=== PATIENT | female | born 1960 | race Caucasian/White ===

== ENCOUNTER → 2020-07-12 13:53 | Outpatient (BNVA) | payer BC, SELFPAY | PROVIDERS: Family Provider Internal Medicine; Referring Provider Internal Medicine; Visit Provider Specialist | DX: M54.2 Cervicalgia (principal); G56.02 Carpal tunnel syndrome, left upper limb; G56.22 Lesion of ulnar nerve, left upper limb | CPT/HCPCS: 95910 ==

== ENCOUNTER → 2020-10-16 18:32 | Outpatient (BNVA) | payer BC, SELFPAY | PROVIDERS: Family Provider Internal Medicine; Visit Provider Nurse Practitioner Family | DX: Z20.828 Contact with and (suspected) exposure to other viral communicable diseases (principal) | CPT/HCPCS: 87635 ==

== ENCOUNTER 2021-03-10 09:40 | Outpatient (CLI) | payer BC, SELFPAY ==
[2021-03-10 10:22] VITALS: BMI 28.1
--- NOTE | 2021-03-10 10:28 | ECG_ITS ---
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 Baseline heart rate was 83 beats per minute. Baseline blood pressure was 170/100 millimeters of mercury. Target heart rate was 162 beats per minute. Maximum heart rate achieved was 151, which was 93 % of the target heart rate. Maximum blood pressure was 211/106 millimeters of mercury. Total exercise time was 9 minutes 31 sec. Maximum METs achieved was 13.5, maximum VO2 was 47.3. The reason for ending the test was maximum effort achieved. The patient complained of shortness of during the stress test, which then resolved at the end of the test. ELECTROCARDIOGRAM: BASELINE: Showed sinus rhythm, normal axis, no significant ST-T changes at the baseline noted. EXERCISE: At the peak exercise level, no significant ST-T changes suggestive of ischemia noted. RECOVERY: During the recovery period, heart rate dropped appropriately. No significant ST-T changes in the recovery suggestive of ischemia noted. CONCLUSION: 1. Exercise capacity good. 2. Heart rate response was appropriate. 3. Blood pressure response was hypertensive. 4. Symptoms not suggestive of ischemia. 5. Electrocardiogram portion of the stress test was not suggestive of ischemia. Electronically Signed On 03-29-2021 20:51:15 CDT by SIA PRIEST [id number]
--- NOTE | 2021-03-10 10:28 | NMCV_ITS ---
NM nishant perf SPECT r/s* [id number] Prisca Ryan Age: 60 Gender: F : 1960 Exam Date: 03/10/2021 10:28 Ordering Phys: Elisabet Vasquez MD Technologist: SHAWN Acosta Exam Location: [facility] Indications: CHEST PAIN STRESS TEST [facility] IMAGE PROTOCOL Rest/Stress 1 Exercise Day Radiopharmaceutical Dose (mCi) Administration Site Administered by Rest: Tc-99m 10.7 IV SHAWN Acosta Sestamibi Stress:Tc-99m 32.8 IV SHAWN Thorne Sestamibi Rest: 10-Mar-2021 60 Discovery 630 Stress: 10-Mar-2021 15 Discovery 630 Radiopharmaceutical was injected at 86 % maximum heart rate. Images obtained in supine and prone position. SPECT RESULTS Technical Quality: Excellent Raw Data Analysis: Normal Image Corrections: No attenuation or motion correction applied Summed Stress Score: 0 Summed Rest Score: 1 Summed Difference Score: 0 PERFUSION FINDINGS FUNCTIONAL RESULTS (calculated via Gated SPECT) Stress Image LV EF (%): 88 Stress EDV (mL):64 TID: 0.53 Stress ESV (mL):8 Rest Image LV EF (%): 88 FUNCTIONAL FINDINGS: There is normal left ventricular systolic function. IMPRESSIONS Myocardial perfusion imaging is normal and low probability for obstructive coronary artery disease, EKG segment will be documented separately. Brianne Rodriguez MD (Electronically Signed) Final Date: 11 March 2021 20:38 S
[2021-03-10 12:10] VITALS: BP 175/95; PULSE 95
== END 2021-03-10 09:41 | disposition home or self-care (01) ==
LOC: CDL 09:42
PROVIDERS: PCP Family Medicine; Visit Provider Family Medicine
DX: R07.9 Chest pain, unspecified (principal)
CPT/HCPCS: 78452; 93017; A9500

== ENCOUNTER 2021-11-02 07:28 | Outpatient (RCR) | payer BC, SELFPAY | END 2021-11-18 23:59 | disposition home or self-care (01) | LOC: SPT 07:28 | PROVIDERS: PCP Family Medicine; Visit Provider Orthopaedic Surgery | DX: S46.092D Other injury of muscle(s) and tendon(s) of the rotator cuff of left shoulder, subsequent encounter (principal); X58.XXXD Exposure to other specified factors, subsequent encounter | CPT/HCPCS: 97110; 97140; 97161 ==

== ENCOUNTER → 2021-11-14 12:41 | Outpatient (BNVA) | payer BC, SELFPAY | PROVIDERS: PCP Family Medicine; Visit Provider Surgery | DX: Z01.812 Encounter for preprocedural laboratory examination (principal); Z20.822 Contact with and (suspected) exposure to COVID-19 | CPT/HCPCS: 87635 ==

== ENCOUNTER 2021-11-17 06:26 | Day surgery (SDC) | payer BC, SELFPAY ==
[2021-11-14 12:24] VITALS: BMI 28.0
[2021-11-17 06:42] VITALS: BP 143/102; PULSE 67; RESP 18; TEMP 37; O2SAT 97
[2021-11-17] MEDS: sodium chloride 0.9% 1,000 ML 30 ML IV (06:51)
--- NOTE | 2021-11-17 06:53 | ANES.PREANE2 ---
Pre-Anesthetic Assessment Pre-Anesthetic Assessment: Height/Weight: Height 1.7 m Weight 81.193 kg Temp Pulse Resp BP Pulse Ox 98.6 F 67 18 143/102 97 11/17/21 06:42 11/17/21 06:42 11/17/21 06:42 11/17/21 06:42 11/17/21 06:42 Proposed Procedure: Operation Date: 11/17/21 07:30 Proposed Procedures p Colonoscopy 58217 z12.11(Not Applicable) - Dequan Caal MD Was Beta Cheryl taken within 24 hours: N/A Was Clonidine taken within 24 hours: N/A Social: Social History: No alcohol and No tobacco Exam: Pre-Anes Outpt Exam: alert, oriented x 3 and clear to auscultation bilaterally Additional Exam Findings (including area of procedure): irregular Airway: Submandibular: WNL Cervical ROM: WNL MP: 2 Dentition: Partials CV/HEM: CV/HEM: Afib and HTN GI: GI: GERD Neuropsych: Neuropsych: Neuropathy Anesthetic Plan: ASA status: 3 Anesthesia: MAC Risk of > 500 ml blood loss (7ml/kg in children): No PFSH Anesthesia PFSH: Family History (Updated 10/16/20 @ 17:39 by Vane Logan LPN) Father Hypertension Denies family history of Diabetes Dementia Social History (Updated 10/16/20 @ 17:38 by Vane Logan LPN) Smoking and tobacco status: never smoked Alcohol intake: never Data Anesthesia Cardiac Studies: Sestamibi Stress Test (Cardiology) 03/10/21
--- NOTE | 2021-11-17 07:21 | P.HP_ITS ---
Same Day Surgery H&P Indication for Procedure/HPI DATE OF PROCEDURE: November 17, 2021 CHIEF COMPLAINT/INDICATIONFOR SURGICAL PROCEDURE: screening colonoscopy PREOP DIAGNOSIS: screening colonoscopy PLANNED PROCEDRUE: Operation Date: 11/17/21 07:30 Proposed Procedures p Colonoscopy 45915 z12.11(Not Applicable) - Dequan Caal MD Medications/Allergies* Home Medications Medication Instructions Recorded Confirmed Type atorvastatin 80 mg tablet 80 mg PO DAILY 07/12/20 11/14/21 History diltiazem HCl 240 mg 240 mg PO DAILY 07/12/20 11/14/21 History capsule,extended release 24 hr enalapril 10 1 tab PO DAILY 07/12/20 11/14/21 History mg-hydrochlorothiazide 25 mg tablet meloxicam 15 mg tablet 15 mg PO DAILY 07/12/20 11/14/21 History omeprazole magnesium 20 mg 20 mg PO DAILY 07/12/20 11/14/21 History tablet,delayed release tramadol 50 mg tablet 50 mg PO Q6H PRN 07/12/20 11/14/21 History loratadine 10 mg tablet 10 mg PO DAILY 10/16/20 11/14/21 History empagliflozin 25 mg tablet 25 mg PO DAILY 08/26/21 11/14/21 History Allergies/Adverse Reactions Allergy/AdvReac Type Severity Reaction Status Date / Time No Known Allergies Allergy Verified 11/17/21 06:42 Current Medications: Generic Name Dose Route Start Last Admin Trade Name Freq PRN Reason Stop Dose Admin Sodium Chloride 1,000 mls @ 30 mls/hr 11/17/21 06:30 11/17/21 06:51 Sodium Chloride 0.9% IV 11/18/21 06:29 30 mls/hr .Q24H LENNIE Administration Pertinent History/Comorbid Conditions* Family History (Updated 10/16/20 @ 17:39 by Vane Logan LPN) Hypertension Father Denies family history of Diabetes Dementia Social History Smoking and tobacco status: never smoked Alcohol intake: never Pertinent Exam Findings alert, oriented x 3 and regular rate & rhythm Recommendations Surgery/Procedure today Coding Level of Care Code Acute Integrated Marketing Manager for Domenico Olguin
--- NOTE | 2021-11-17 08:11 | ANE.PACU2 ---
Inpatient post-anesthesia follow up: Airway intact: Yes Vital signs: Temperature 98.6 F Pulse Rate 67 Respiratory Rate 18 Blood Pressure 143/102 Pulse Oximetry 97 Oxygen Delivery Me thod Room Air Oxygen Flow Rate Fraction of Inspir ed Oxygen Hydration adequate: Yes Nausea and vomiting: No Pain level: 1 Mental status: Baseline
[2021-11-17 08:14] VITALS: BP 119/76; PULSE 73; RESP 16; TEMP 36.1; O2SAT 97
[2021-11-17 08:23] VITALS: BP 131/96; PULSE 61; RESP 18; O2SAT 96
== END 2021-11-17 08:50 | disposition home or self-care (01) ==
PROVIDERS: PCP Family Medicine; Visit Provider Surgery
PROC: 0DJD8ZZ Inspection of Lower Intestinal Tract, Via Natural or Artificial Opening Endoscopic (ICD-10-PCS; CPT 45378; principal; 2021-11-17 07:30)
DX: Z12.11 Encounter for screening for malignant neoplasm of colon (principal); K57.30 Diverticulosis of large intestine without perforation or abscess without bleeding; I10 Essential (primary) hypertension; K21.9 Gastro-esophageal reflux disease without esophagitis
CPT/HCPCS: 45378; 96360; J2704; J7030

== ENCOUNTER 2021-11-19 06:00 | Outpatient (RCR) | payer BC, SELFPAY | END 2021-12-19 23:59 | disposition home or self-care (01) | LOC: SPT 06:00 | PROVIDERS: PCP Family Medicine; Visit Provider Orthopaedic Surgery | DX: S46.092D Other injury of muscle(s) and tendon(s) of the rotator cuff of left shoulder, subsequent encounter (principal); X58.XXXD Exposure to other specified factors, subsequent encounter | CPT/HCPCS: 97110; 97140 ==

== ENCOUNTER 2021-12-20 06:00 | Outpatient (RCR) | payer BC, SELFPAY | END 2022-01-16 23:59 | disposition home or self-care (01) | LOC: SPT 06:00 | PROVIDERS: PCP Family Medicine; Visit Provider Orthopaedic Surgery | DX: Z47.89 Encounter for other orthopedic aftercare (principal) | CPT/HCPCS: 97110 ==

== ENCOUNTER 2022-02-03 08:28 | Outpatient (CLI) | payer OTHER, SELFPAY ==
--- NOTE | 2022-02-03 08:52 | MM_ITS ---
WS: [id number] BILATERAL 3D TOMOSYNTHESIS DIGITAL SCREENING MAMMOGRAPHY WITH CAD CLINICAL INFORMATION: SCREEN HISTORY: Screening mammogram. No current complaints. COMPARISON: June 20, 2019 TECHNIQUE: Bilateral CC and MLO views. FINDINGS: Scattered fibroglandular densities bilaterally. No suspicious focal mass, asymmetry, calcifications, or architectural distortion. No evidence of malignancy. MM/[place] [id number] IMPRESSION: BI-RADS: 1-Negative FOLLOW UP: 1 Year Follow-up Recommend return to annual screening mammography.
== END 2022-02-03 08:29 | disposition home or self-care (01) ==
LOC: RADSHAW 08:31
PROVIDERS: PCP Family Medicine; Visit Provider Family Medicine
DX: Z12.31 Encounter for screening mammogram for malignant neoplasm of breast (principal)
CPT/HCPCS: 77063; 77067

== ENCOUNTER → 2022-07-28 15:04 | Outpatient (BNVA) | payer OTHER, SELFPAY | PROVIDERS: PCP Family Medicine; Visit Provider Nurse Practitioner Women's Health | DX: N89.8 Other specified noninflammatory disorders of vagina (principal) | CPT/HCPCS: 87491; 87591; 87661 ==

== ENCOUNTER → 2022-08-08 13:53 | Outpatient (BNVA) | payer OTHER, SELFPAY | PROVIDERS: PCP Family Medicine; Visit Provider Nurse Practitioner Women's Health | DX: N76.3 Subacute and chronic vulvitis (principal) | CPT/HCPCS: 88305 ==

== ENCOUNTER 2022-09-25 11:41 | Outpatient (CLI) | payer OTHER, SELFPAY ==
[2022-09-26 12:47] LABS: CENTROMERE B ANTIBODY <1.0 NEG AI (<1.0 NEG); COMPLEMENT COMPONENT C3C 203 mg/dL (83-193); COMPLEMENT COMPONENT C4C 36 mg/dL (15-57); JO-1 ANTIBODY <1.0 NEG AI (<1.0 NEG); RNP ANTIBODY <1.0 NEG AI (<1.0 NEG); SCL-70 ANTIBODY <1.0 NEG AI (<1.0 NEG); SJOGREN'S ANTIBODY (SS-A) <1.0 NEG AI (<1.0 NEG); SM ANTIBODY <1.0 NEG AI (<1.0 NEG); SS-B <1.0 NEG AI (<1.0 NEG)
[2022-09-26 16:03] LABS: THYROID PEROXIDASE ANTIBODIES <1 IU/mL (<9)
[2022-09-27 11:38] LABS: ANA PATTERN Cytoplasmic; ANA SCREEN, IFA POSITIVE (NEGATIVE)
[2022-09-27 13:14] LABS: COMPLEMENT, TOTAL (CH50) >60 U/mL (31-60)
[2022-09-28 13:56] LABS: DNA AB (DS) CRITHIDIA,IFA NEGATIVE (NEGATIVE)
== END 2022-09-25 11:42 | disposition home or self-care (01) ==
PROVIDERS: PCP Family Medicine; Visit Provider Dermatology
DX: D89.89 Other specified disorders involving the immune mechanism, not elsewhere classified (principal); M25.50 Pain in unspecified joint; R53.83 Other fatigue
CPT/HCPCS: 86160; 86162; 86235; 86255; 86376

== ENCOUNTER → 2023-10-04 12:25 | Outpatient (BNVA) | payer OTHER, SELFPAY | PROVIDERS: PCP Family Medicine; Visit Provider Internal Medicine | DX: E11.9 Type 2 diabetes mellitus without complications (principal); R76.8 Other specified abnormal immunological findings in serum; L40.9 Psoriasis, unspecified; M47.898 Other spondylosis, sacral and sacrococcygeal region; M19.042 Primary osteoarthritis, left hand; M19.041 Primary osteoarthritis, right hand | CPT/HCPCS: 36415; 72202; 73120; 80053; 81001; 82306; 82550; 82607; 82784; 83516; 83520; 83735; 84100; 84439; 84443; 85025; 85651; 86003; 86008; 86140; 86160; 86200; 86431; 86704; 86803; 87077; 87086; 87186; 87340 ==

== ENCOUNTER → 2023-11-01 11:07 | Outpatient (BNVA) | payer OTHER, SELFPAY | PROVIDERS: PCP Family Medicine; Visit Provider Internal Medicine | DX: M54.50 Low back pain, unspecified; R76.8 Other specified abnormal immunological findings in serum; E11.9 Type 2 diabetes mellitus without complications; R13.10 Dysphagia, unspecified; M45.0 Ankylosing spondylitis of multiple sites in spine; R53.83 Other fatigue; Z91.018 Allergy to other foods; R21 Rash and other nonspecific skin eruption; M53.3 Sacrococcygeal disorders, not elsewhere classified | CPT/HCPCS: 36415; 72100; 82784; 83516; 86812 ==

== ENCOUNTER 2024-02-27 13:54 | Outpatient (CLI) | payer OTHER, SELFPAY ==
[2024-02-27 14:39] LABS: Alanine Aminotransferase 30 U/L (0-33); Albumin Level 4.3 g/dL (3.5-5.2); Alkaline Phosphatase 102 U/L (35-105); Anion Gap 15.2 (5-19); Aspartate Amino Transferase 20 U/L (0-32); Blood Urea Nitrogen 16 mg/dL (8-23); Calcium 9.7 mg/dL (8.5-10.5); Carbon Dioxide 26 mmol/L (22-29); Chloride 105 mmol/L (98-107); Chol HDL Ratio 3.74 mg/dL (0.0-4.40); Cholesterol 161 mg/dL (0-200); Globulin 3.1 g/dL (1.3-4.6); Glomerular Filtration Rate 72.9 mL/min (90-130); Glucose 107 mg/dL (65-115); HDL Cholesterol 43 mg/dL (60-100); LDL Cholesterol Calculated 70 mg/dL (50-129); LDL HDL Ratio 1.63 RATIO (0.00-3.22); Osmolality Calculated 296 mOsm/kg (285-295); Potassium 4.2 mmol/L (3.5-5.1); Sodium 142 mmol/L (136-145); Total Bilirubin 0.3 mg/dL (0.15-1.2); Total Protein 7.4 g/dL (6.6-8.7); Triglycerides 241 mg/dL (0-150)
[2024-02-27 14:51] LABS: Estmated Average Glucose 140; Hemoglobin A1C 6.5 % (4.0-6.0)
[2024-02-27 14:59] LABS: Creatinine Urine, Random 102 mg/dL (28-217); Microalbum Creatinine Ratio Ur 10 mg/dL (0-20); Microalbumin Random Urine 1 ug/dL (0-20)
== END 2024-02-27 13:55 | disposition home or self-care (01) ==
LOC: LAB 13:55
PROVIDERS: PCP Family Medicine; Visit Provider Internal Medicine
DX: E11.9 Type 2 diabetes mellitus without complications (principal)
CPT/HCPCS: 36415; 80053; 80061; 82044; 83036; 84681

== ENCOUNTER 2024-12-18 09:18 | Outpatient (CLI) | payer OTHER, SELFPAY ==
[2024-12-18 10:02] LABS: Alanine Aminotransferase 23 U/L (0-33); Albumin Level 4.3 g/dL (3.5-5.2); Alkaline Phosphatase 108 U/L (35-105); Anion Gap 13.5 (5-19); Aspartate Amino Transferase 19 U/L (0-32); Blood Urea Nitrogen 12 mg/dL (8-23); Calcium 9.5 mg/dL (8.5-10.5); Carbon Dioxide 27 mmol/L (22-29); Chloride 103 mmol/L (98-107); Chol HDL Ratio 4.62 mg/dL (0.0-4.40); Cholesterol 171 mg/dL (0-200); Glomerular Filtration Rate 72.7 mL/min (90-130); Glucose 128 mg/dL (65-115); HDL Cholesterol 37 mg/dL (60-100); LDL Cholesterol Calculated 100 mg/dL (50-129); Osmolality Calculated 289 mOsm/kg (285-295); Potassium 4.5 mmol/L (3.5-5.1); Sodium 139 mmol/L (136-145); Total Bilirubin 0.4 mg/dL (0.15-1.2); Total Protein 7.3 g/dL (6.6-8.7); Triglycerides 170 mg/dL (0-150)
[2024-12-18 10:03] LABS: Creatinine Urine, Random 211 mg/dL (28-217); Microalbum Creatinine Ratio Ur 5 mg/dL (0-20); Microalbumin Random Urine 1 ug/dL (0-20)
[2024-12-18 10:05] LABS: Estmated Average Glucose 140; Hemoglobin A1C 6.5 % (4.0-6.0)
== END 2024-12-18 09:19 | disposition home or self-care (01) ==
LOC: LAB 09:19
PROVIDERS: PCP Family Medicine; Visit Provider Internal Medicine
DX: E11.9 Type 2 diabetes mellitus without complications (principal); E78.2 Mixed hyperlipidemia
CPT/HCPCS: 36415; 80053; 80061; 82044; 83036

== ENCOUNTER 2025-06-08 10:47 | Outpatient (CLI) | payer OTHER, SELFPAY ==
[2025-06-08 12:27] LABS: Hematocrit 46.2 % (36-47); Hemoglobin 15.30 g/dL (11.27-16.99); Mean Corpuscular HGB Conc 33.1 g/dL (30-55); Mean Corpuscular Hemoglobin 29.9 pg (27-33); Mean Corpuscular Volume 90.2 fl (85-98); Nucleated Red Blood Cells % 0 %; Platelet Count 217 10^3/cmm (157-399); Red Blood Count 5.12 10^6/uL (3.85-5.65); White Blood Count 7.25 10^3/uL (3.29-11.43)
[2025-06-08 12:42] LABS: Estmated Average Glucose 163; Hemoglobin A1C 7.3 % (4.0-6.0)
[2025-06-08 12:59] LABS: Creatinine Urine, Random 224 mg/dL (28-217); Microalbum Creatinine Ratio Ur 4 mg/dL (0-20)
[2025-06-08 13:09] LABS: Alanine Aminotransferase 27 U/L (0-33); Albumin Level 4.3 g/dL (3.5-5.2); Alkaline Phosphatase 106 U/L (35-105); Anion Gap 17.3 (5-19); Aspartate Amino Transferase 22 U/L (0-32); Blood Urea Nitrogen 17 mg/dL (8-23); Calcium 9.8 mg/dL (8.5-10.5); Carbon Dioxide 28 mmol/L (22-29); Chloride 99 mmol/L (98-107); Cholesterol 190 mg/dL (0-200); Globulin 3.2 g/dL (1.3-4.6); Glucose 147 mg/dL (65-115); HDL Cholesterol 46 mg/dL (60-100); Osmolality Calculated 294 mOsm/kg (285-295); Potassium 4.3 mmol/L (3.5-5.1); Sodium 140 mmol/L (136-145); Total Protein 7.5 g/dL (6.6-8.7); Triglycerides 237 mg/dL (0-150)
== END 2025-06-08 10:48 | disposition home or self-care (01) ==
PROVIDERS: Family Provider Family Medicine; PCP Family Medicine; Visit Provider Internal Medicine
DX: I10 Essential (primary) hypertension (principal); E11.9 Type 2 diabetes mellitus without complications; E78.2 Mixed hyperlipidemia
CPT/HCPCS: 36415; 80053; 80061; 82044; 83036; 85025

== ENCOUNTER → 2025-06-29 12:02 | Outpatient (BNVA) | payer OTHER, SELFPAY | PROVIDERS: PCP Family Medicine; Visit Provider Family Medicine | DX: E53.8 Deficiency of other specified B group vitamins (principal); R41.89 Other symptoms and signs involving cognitive functions and awareness | CPT/HCPCS: 82607; 84443 ==

== ENCOUNTER → 2025-07-21 09:06 | Outpatient (BNVA) | payer OTHER, SELFPAY | PROVIDERS: PCP Family Medicine; Referring Provider Family Medicine; Visit Provider Anesthesiology Pain Medicine | DX: M43.16 Spondylolisthesis, lumbar region (principal); M51.362 Other intervertebral disc degeneration, lumbar region with discogenic back pain and lower extremity pain; G89.29 Other chronic pain; M25.551 Pain in right hip; M25.552 Pain in left hip | CPT/HCPCS: 72114; 73521 ==

== ENCOUNTER → 2025-08-03 09:09 | Outpatient (BNVA) | payer OTHER, SELFPAY | PROVIDERS: PCP Family Medicine; Visit Provider Family Medicine | DX: R30.0 Dysuria (principal) | CPT/HCPCS: 81000; 87086 ==

== ENCOUNTER → 2025-10-02 15:16 | Outpatient (BNVA) | payer OTHER, SELFPAY | PROVIDERS: PCP Family Medicine; Visit Provider Family Medicine | DX: E11.9 Type 2 diabetes mellitus without complications (principal) | CPT/HCPCS: 80053; 83036 ==